=== PATIENT | male | born 1950 | race Caucasian/White ===

== ENCOUNTER → 2021-03-05 | Outpatient (CLI) | payer MEDICARE | END | disposition home or self-care (01) | LOC: LABWHC1 11:37 | PROVIDERS: ATTEND Psychiatry & Neurology Neurology | DX: U07.1 COVID-19 (principal); J18.9 Pneumonia, unspecified organism; G62.9 Polyneuropathy, unspecified; G72.9 Myopathy, unspecified | CPT/HCPCS: 85652; 82607; 82550; 86769; 36415; U0003 ==